=== PATIENT | male | born 1975 | race African-American/Black ===

== ENCOUNTER 2017-09-07 15:18 | Emergency (ER) | payer BC, MEDICAID ==
[~2017-09-07] VITALS: Ht 190.5 cm; Wt 113.0 kg
[2017-09-07 15:50] VITALS: BP 203/112
[2017-09-07] MEDS ORDERED: DIPHENHYDRAMINE 50MG CAPSULE PO ONE (20:00)
[2017-09-07] MEDS ORDERED: TETANUS, DIPHTHERIA, PERTUSSIS VAC/PF 0.5ML (>7YR OLD) IM ONE (20:15)
[2017-09-07 20:27] LABS: CARBON DIOXIDE 29 mEq/L (21-32); CHLORIDE 105 mEq/L (98-107)
[2017-09-07 20:39] LABS: BASOPHILS % 0.7 % (0.0-2.0); HEMATOCRIT. 45.2 % (42.0-52.0); HEMOGLOBIN. 14.6 g/dL (14.0-18.0); LYMPHOCYTES % 34.3 % (20.0-50.0); MEAN CORPUSCULAR VOLUME 89.5 fL (80.0-94.0); MEAN PLATELET VOLUME 9.5 fl (7.4-10.4); MONOCYTES % 12.9 % (2.0-8.0); NEUTROPHILS % 47.1 % (40.0-76.0); PLATELET 208 x1000/uL (130-400); RED BLOOD CELL COUNT 5.05 mill/uL (4.7-6.1); RED CELL DISTRIBUTION WIDTH 13.8 % (11.6-14.6)
== END 2017-09-07 21:00 | disposition home or self-care (01) ==
LOC: ER 15:18
DX: L03.116 Cellulitis of left lower limb (principal); L03.115 Cellulitis of right lower limb; I10 Essential (primary) hypertension; Z98.890 Other specified postprocedural states
CPT/HCPCS: 36415; 80048; 85025; 90471; 90715; 99284; Z7610; Q0163

== ENCOUNTER 2021-03-16 19:40 | Emergency (ER) | payer MEDICAID ==
[~2021-03-16] VITALS: Ht 188 cm; Wt 117.0 kg
[~2021-03-16 19:40] MED LIST: FERR325T6 MT
[2021-03-16 22:19] LABS: BASOPHILS % 0.7 % (0.0-2.0); EOSINOPHILS % 4.7 % (0.0-5.0); HEMOGLOBIN. 8.2 g/dL (14.0-18.0); LYMPHOCYTES % 30.3 % (20.0-50.0); MEAN CORPUSCULAR HEMOGLOBIN 24.3 pg (28.0-32.0); MEAN CORPUSCULAR VOLUME 76.9 fL (80.0-94.0); MEAN PLATELET VOLUME 8.5 fl (7.4-10.4); MONOCYTES % 12.4 % (2.0-8.0); NEUTROPHILS % 51.9 % (40.0-76.0); PLATELET 305 x1000/uL (130-400); RED BLOOD CELL COUNT 3.37 mill/uL (4.7-6.1); RED CELL DISTRIBUTION WIDTH 21.7 % (11.6-14.6)
[2021-03-16 22:21] LABS: CLARITY URINE CLEAR (CLEAR); COLOR URINE YELLOW (YELLOW); KETONES URINE NEGATIVE (NEGATIVE); LEUKOCYTE ESTERASE URINE NEGATIVE (NEGATIVE); NITRITE URINE NEGATIVE (NEGATIVE); OCCULT BLOOD URINE NEGATIVE (NEGATIVE); PH URINE 5.5 (4.5-8.0); PROTEIN URINE NEGATIVE (NEGATIVE); SPECIFIC GRAVITY URINE 1.019 (1.005-1.030); UROBILINOGEN URINE 0.2 E.U./dL (0.2-1.0)
[2021-03-16 22:22] LABS: CHLORIDE 106 mEq/L (98-107)
[2021-03-17 02:27] VITALS: BP 114/79
== END 2021-03-17 02:30 | disposition home or self-care (01) ==
LOC: ER 19:40
DX: D64.9 Anemia, unspecified (principal); I10 Essential (primary) hypertension; Z13.9 Encounter for screening, unspecified
CPT/HCPCS: 36415; 80053; 81003; 85025; 86850; 86900; 86901; 86920; 99285; J7040; Z7610; 99283; P9016